=== PATIENT | male | born 1955 | race Caucasian/White ===

== ENCOUNTER 2017-07-03 18:20 | Emergency (ER) | payer BC ==
[~2017-07-03] VITALS: Ht 175.3 cm; Wt 90.7 kg
[2017-07-03 18:25] VITALS: BP_SYST 134
[2017-07-03] MEDS ORDERED: ACETAMINOPHEN 500 MG TABLET PO ONE (18:45)
[2017-07-03] MEDS ORDERED: ACETAMINOPHEN 500 MG TABLET ONE (19:05)
[2017-07-03] MEDS ORDERED: LIDOCAINE 2%, 20 ML MDV ONE (19:20)
[2017-07-03] MEDS ORDERED: LIDOCAINE 2%, 20 ML MDV IJ ONE (19:30)
[2017-07-03] MEDS ORDERED: BACITRACIN 1 GM OINT TP ONE (20:45)
[2017-07-03] MEDS ORDERED: DIPH-TET-PERTUS Vaccine 0.5 ML VIAL (ADACEL) IM ONE (20:45)
[2017-07-03] MEDS ORDERED: HYDROcodone/ACETAMIN 7.5-325 MG TAB PO ONE (21:45)
[2017-07-03] MEDS ORDERED: CEPHALEXIN 500 MG CAPSULE PO ONE (22:00)
[2017-07-03 22:10] VITALS: BP_SYST 133
== END 2017-07-03 22:10 | disposition home or self-care (01) ==
LOC: SED 18:20
DX: S62.521B Displaced fracture of distal phalanx of right thumb, initial encounter for open fracture (principal); S61.111A Laceration without foreign body of right thumb with damage to nail, initial encounter; I10 Essential (primary) hypertension; W23.0XXA Caught, crushed, jammed, or pinched between moving objects, initial encounter; Y93.89 Activity, other specified; Y92.009 Unspecified place in unspecified non-institutional (private) residence as the place of occurrence of the external cause; Y99.8 Other external cause status
CPT/HCPCS: 12002; 73120; 90471; 90715; 99284; J2001